=== PATIENT | female | born 1965 ===

== ENCOUNTER 2021-09-09 08:52 | Inpatient (IN) ==
[2021-09-09 10:38] LABS: Albumin 3.5 G/DL (3.4-5.0); Bilirubin,Total 0.9 MG/DL (0.20-1.00); Calcium 5.9 MG/DL (8.5-10.1); Osmolality,Calculated 275.5 MOS/KG (273-304); Potassium 3.3 MMOL/L (3.5-5.1); Total Protein 7.7 G/DL (6.4-8.2)
[2021-09-09 10:42] LABS: Basophils % 0.3 % (0.0-0.8); Eosinophils # 0.1 10*3/uL (0.0-0.87); Eosinophils % 1.9 % (0.00-10.9); Hematocrit 38.4 VOL% (35.7-47.0); Hemoglobin 11.2 GM/DL (12.0-16.0); Immature Granulocytes % 0.5 %; Immature Granulocytes Absolute 0.03 #; Lymphocytes # 2.5 10*3/uL (1.4-4.0); Lymphocytes % 39.7 % (21.3-54.2); Mean Corpuscular HGB Conc 29.2 GM/DL (32-36); Mean Corpuscular Volume 70.6 FL (87-102); Mean Platelet Volume 10.2 FL (9.6-12.0); Monocytes # 0.5 10*3/uL (0.11-0.8); Neutrophils % 49.6 % (38.7-73.9); Platelet Count 248 T/CUMM (130-400); Red Blood Count 5.44 MC/CUMM (3.8-5.5); Red Cell Distribution Width 18.4 % (9.3-17.3); White Blood Count 6.4 T/CUMM (4-12)
[2021-09-09] MEDS ORDERED: CALCIUM GLUCONATE RIDER 2,000 MG/100 ML PREMIX IV ONE ×2 (11:08→17:00)
[2021-09-09] MEDS ORDERED: ACETAMINOPHEN 325 MG TABLET PO PRN (11:33)
[2021-09-09] MEDS ORDERED: ONDANSETRON 4 MG/2 ML VIAL IV PRN (11:33)
[2021-09-09] MEDS ORDERED: DEXTROSE 10% 250 ML BAG IV PRN ×2 (11:33→15:27)
[2021-09-09] MEDS ORDERED: GLUCAGON 1 MG VIAL IM PRN (11:33)
[2021-09-09] MEDS ORDERED: POTASSIUM CHLORIDE 20 MEQ TABLET PO ONE (13:00)
[2021-09-09] MEDS: ENOXAPARIN 40 MG/0.4 ML SYRINGE SUBCUT SCH (13:02)
[2021-09-09] MEDS ORDERED: MAGNESIUM SULF RIDER 2 GM/50 ML PREMIX IV STA (15:16)
[2021-09-09] MEDS ORDERED: hydrALAZINE 20 MG/1 ML VIAL IV ONE (15:25)
[2021-09-09] MEDS: MAGNESIUM OXIDE 400 MG TABLET PO SCH (15:56)
[2021-09-09] MEDS ORDERED: CALCIUM (CARBONATE) 500 MG TABLET PO SCH (16:00)
[2021-09-09] MEDS: calcitrioL 0.25 MCG CAPSULE PO SCH (17:00)
[2021-09-09] MEDS ORDERED: TRIAMTERENE/HCTZ 75-50 MG TABLET PO SCH (17:00)
[2021-09-09] MEDS: carvediloL 6.25 MG TABLET PO SCH (17:00)
[2021-09-09] MEDS ORDERED: CALCIUM (CARBONATE) 500 MG TABLET PO ONE (18:30)
[2021-09-09] MEDS: TRIAMTERENE/HCTZ 37.5-25 MG TABLET PO SCH (21:52)
[2021-09-09] MEDS: FERROUS SULFATE 325 MG TABLET PO SCH (21:52)
[2021-09-10 04:50] LABS: Basophils % 0.4 % (0.0-0.8); Eosinophils # 0.1 10*3/uL (0.0-0.87); Hematocrit 37.3 VOL% (35.7-47.0); Hemoglobin 11.2 GM/DL (12.0-16.0); Immature Granulocytes % 0.3 %; Immature Granulocytes Absolute 0.02 #; Lymphocytes # 2.6 10*3/uL (1.4-4.0); Lymphocytes % 37.7 % (21.3-54.2); Mean Corpuscular Volume 69.7 FL (87-102); Mean Platelet Volume 10.9 FL (9.6-12.0); Monocytes # 0.5 10*3/uL (0.11-0.8); Monocytes % 7.8 % (1.7-12.7); Neutrophils % 51.8 % (38.7-73.9); Platelet Count 242 T/CUMM (130-400); Red Blood Count 5.35 MC/CUMM (3.8-5.5); Red Cell Distribution Width 18.2 % (9.3-17.3)
[2021-09-10 05:25] LABS: Albumin 3.3 G/DL (3.4-5.0); Calcium 6.5 MG/DL (8.5-10.1); Osmolality,Calculated 275.5 MOS/KG (273-304); Thyroid Stimulating Hormone 0.961 uIU/ml (0.358-3.74); Total Protein 7.5 G/DL (6.4-8.2)
[2021-09-10] MEDS: carvediloL 6.25 MG TABLET PO SCH ×2 (08:16→17:08)
[2021-09-10] MEDS: FERROUS SULFATE 325 MG TABLET PO SCH ×2 (08:16→21:58)
[2021-09-10] MEDS: EZETIMIBE 10 MG TABLET PO SCH (08:17)
[2021-09-10] MEDS: calcitrioL 0.25 MCG CAPSULE PO SCH (08:17)
[2021-09-10] MEDS: TRIAMTERENE/HCTZ 37.5-25 MG TABLET PO SCH (08:17)
[2021-09-10] MEDS: MAGNESIUM OXIDE 400 MG TABLET PO SCH (08:17)
[2021-09-10] MEDS: PANTOPRAZOLE 40 MG TABLET PO SCH (08:17)
[2021-09-10] MEDS ORDERED: POTASSIUM CHLORIDE 20 MEQ TABLET PO ONE ×2 (08:37→11:00)
[2021-09-10] MEDS: ENOXAPARIN 40 MG/0.4 ML SYRINGE SUBCUT SCH (13:32)
[2021-09-10] MEDS ORDERED: ATORVASTATIN 20 MG TABLET PO SCH (21:00)
[2021-09-11 05:49] LABS: Albumin 3.3 G/DL (3.4-5.0); Calcium 6.6 MG/DL (8.5-10.1); Osmolality,Calculated 277.5 MOS/KG (273-304); Potassium 3.5 MMOL/L (3.5-5.1); Total Protein 7.5 G/DL (6.4-8.2)
[2021-09-11] MEDS ORDERED: POTASSIUM CHLORIDE 20 MEQ TABLET PO ONE ×2 (08:30→11:00)
[2021-09-11] MEDS: calcitrioL 0.25 MCG CAPSULE PO SCH (09:08)
[2021-09-11] MEDS: carvediloL 6.25 MG TABLET PO SCH (09:08)
[2021-09-11] MEDS: TRIAMTERENE/HCTZ 37.5-25 MG TABLET PO SCH (09:08)
[2021-09-11] MEDS: MAGNESIUM OXIDE 400 MG TABLET PO SCH (09:08)
[2021-09-11] MEDS: FERROUS SULFATE 325 MG TABLET PO SCH (09:08)
[2021-09-11] MEDS: PANTOPRAZOLE 40 MG TABLET PO SCH (09:09)
[2021-09-11] MEDS: EZETIMIBE 10 MG TABLET PO SCH (09:09)
[2021-09-11] MEDS ORDERED: CALCIUM GLUCONATE RIDER 2,000 MG/100 ML PREMIX IV ONE (09:30)
[2021-09-11] MEDS: ENOXAPARIN 40 MG/0.4 ML SYRINGE SUBCUT SCH (11:12)
[2021-09-11 12:58] VITALS: BP 135/68
== END 2021-09-11 13:26 | disposition home or self-care (01) | DRG 641 ==
LOC: N.ED 08:52 → N.EDINP 11:31 → SUATTDRO 11:31 → N.5E 15:27
PROVIDERS: ADMIT Internal Medicine; ATTEND Family Medicine